=== PATIENT | male | born 1975 | race African-American/Black ===

== ENCOUNTER 2025-08-01 18:51 | Observation (INO) | payer OTHER, SELFPAY ==
[2025-08-01] VITALS (43 sets, daily range): BP systolic 150–196; BP diastolic 99–125; PULSE 65–77; TEMP 36.6; O2SAT 96–100; BMI 30.3; BMI 29.3
--- OUTSIDE RECORDS SUMMARY | 2025-08-01 18:59 | XMS_ITS | Clinical Summary ---
Author Organization [employer] tem Address [facility] [id number] [address] [place] [address] Care Team Providers Care Labor Specialist Name Role Phone Maicol Greco MD Primary Care Provider [phone] Allergies No known active allergies Medications MedicationSigDispense QuantityRefillsLast FilledStart DateEnd DateStatus metFORMIN (GLUCOPHAGE) 500 mg tablet Take 2 tablets (1,000 mg total) by mouth in the morning and 2 tablets (1,000 mg total) in the evening. Take with meals.Active lisinopril (PRINIVIL,ZESTRIL) 40 mg tablet Take 1 tablet (40 mg total) by mouth in the morning.Active glipiZIDE (GLUCOTROL) 10 mg tablet Take 1 tablet (10 mg total) by mouth in the morning.12/09/2023ctive traZODone (DESYREL) 100 mg tablet Take 1 tablet (100 mg total) by mouth nightly.Active lisinopriL (PRINIVIL,ZESTRIL) 40 mg tablet Take 1 tablet (40 mg total) by mouth in the morning. 30 tablet 1108/5Active magnesium oxide (MAGOX) 400 mg tablet Take 1 tablet (400 mg total) by mouth in the morning and 1 tablet (400 mg total) before bedtime. 180 tablet 408/25/5Active spironolactone (ALDACTONE) 50 mg tablet Indications:Hypertension, unspecified typeTake 1 tablet (50 mg total) by mouth in the morning and 1 tablet (50 mg total) in the evening. Takewith meals. 60 tablet 60//5Active potassium chloride (KLOR-CON M 20) 20 MEQ CR tablet Indications:HypokalemiaTake 3 tablets (60 mEq total) by mouth in the morning. 90 tablet 608/5Active carvediloL (COREG) 6.25 mg tablet Take 1 tablet (6.25 mg total) by mouth in the morning and 1 tablet (6.25 mg total) before bedtime. 60 tablet 605Active Active Problems ProblemNoted DateDiagnosed CmfuPbirqoowymea84/23/4367Akdujahhqnu72/23/2025 Dplmulmzgyous08/01/2019Diabetes vzjryvnl24/08/2017 Encounters DateTypeDepartmentCare IcfzJjnhlxpzcxy07/02/2025 10:50 AM EDT - 07/08/2025 11:59 PM EDTHospital Encounter [facility] [address] [place] [address] Dieudonne Torres MD Hypokalemia; Hypertension, unspecified type Discharge Disposition: Home07/08/2025Telephone [facility] [address] [place] [address] Alexandra Lynch, [facility] 07/08/20250695Pcnsye78/12/2025Telephone [facility] [address] [place] [phone] External, Scanning Provider 06/14/20252596Cxgnzn31/03/2025Telephone [facility] [address] [place] [address] Octavia Dumont, [facility] 06/03/2025Orders Only [facility] [address] [place] [address] Teri Sinclair LPN Hypokalemia (Primary Dx); Hypertension, unspecified type06/03/2025Telephone [facility] [address] [place] [address] Cindy Castillo, ESTIMATING MANAGER-CLINICAL STAFF ANESTHESIOLOGIST Increased BP05/31/2025 9:20 AM EDTOffice Visit [facility] [address] [place] [phone] Cindy Castillo, ESTIMATING MANAGER-CLINICAL STAFF ANESTHESIOLOGIST Hypokalemia (Primary Dx); Primary zopmuwpdzdxpcphvlj26/22/9922Ghjcsv43/13/2025Telephone [facility] [address] [place] [phone] External, Scanning Provider 05/18/2025Telephone [facility] [address] [place] [phone] Alexandra Lynch CMA Appointment (1 month follow up )from Last 3 Months Immunizations ImmunizationAdministration DatesNext DueCOVID-19, mRNA, LNP-S, PF, 100mcg/0.5mL Dose12/30/2020,12/02/2020 Family History Medical HistoryRelationNameCommentsDiabetesFatherHypertensionFatherLung cancer FatherHypertensionMotherRelationNameStatusCommentsFatherMother Social History Tobacco UseTypesPacks/DayYears UsedDateSmoking Tobacco: NeverSmokeless Tobacco: Never Tobacco Cessation:Counseling Given: Not Answered Alcohol UseStandard Drinks/WeekCommentsYes0 (1 standard drink = 0.6 oz pure alcohol)socialChildcareAnswerDate OxndykqnZeaxwhoucHofdkiw54/31/2019Employment AnswerDate HspygmzcKjnztbhgxmMhgotxg83/31/2019Hunger ScreeningAnswerDate RecordedWithin the past 12 months we worried whether our food would run out before we got money to buy more.Never True12/30/2023Within the past 12 months the food we bought just didn't last and we didn't have money to get more.Never True4Purpose - LifeAnswerDate RecordedPurpose and direction in life Wzlukwr2811/17/2020ex and Gender InformationValueDate RecordedSex Assigned at BirthNot on fileLegal JzlUydh3605/12/2015 11:22 AM EDTGender IdentityNot on file Sexual OrientationNot on file Last Filed Vital Signs Vital SignReadingTime TakenCommentsBlood Gmrvyjxg118/9608 9:31 AM EDT Qgibm814505/31/2025 9:26 AM CARLqtejrewifl26.5 ??C (97.7 ??F)01/27/2024 9:48 AM EDTRespiratory Oklj267504/28/2025 10:31 AM EDTOxygen Sfzlufmyxa49%05/31/2025 9:26 AM EDTInhaled Oxygen Concentration--Tfztko380.7 kg (222 lb)07/08/2025 11:01 AM YAHPdqxoq171.4 cm (6' 1 )07/08/2025 11:01 AM EDTBody Mass Index29.291 11:01 AM EDT Plan of Treatment Health MaintenanceDue DateLast DoneCommentsDiabetic Ophthalmology Exam1973 Statin Use: Hxblsszr1973Depression Tueuotgyd10/24/1985Adult BMI Follow Up Plan1991Diabetic Foot Exam1991DTaP,Tdap and Td Vaccines (1 - Tdap) 1992Zoster (Shingles) Vaccine (1 of 2)2023OVID-19 Vaccine (3 - 2024- season)503/, 12/02/2020Influenza Gbrcrgn4406/07/2025 10/03/2019Tobacco Dkevaofyp75/dult BMI Nszfjfbmd74/02/2026 07/08/20250526Cfawsttpudk33, 01/27/2024 Medical Devices Not on file Procedures Procedure NamePriorityDate/TimeAssociated DiagnosisCommentsMR ABDOMEN W WO CONT Basihnl1307/08/2025 11:54 AM EDT Hypokalemia Hypertension, unspecified type BASIC METABOLIC EFCHRPwhyoqi98/08/2025 2:34 PM EDT Hypokalemia Primary hyperaldosteronism PROTEIN CREAT EHUQQNbtuwpm68/22/2025 12:47 PM EDT Hypokalemia Hypertension, unspecified type VEDZKBZZXSEgtruah46/22/2025 12:47 PM EDT Hypokalemia Hypertension, unspecified type FIRVXTKNOKrphedw60/22/2025 12:47 PM EDT Hypokalemia Hypertension, unspecified type BASIC METABOLIC NBULGZdauwns04/22/2025 12:47 PM EDT Hypokalemia Hypertension, unspecified type PROVATION PPRLLGWUKRIPxtdcsh01/22/2024 9:38 AM EDT from Last 3 Months or Most Recently Relevant to Health Maintenance Results * MR abdomen with and without contrast (07/08/2025 11:54 AM EDT)Anatomical RegionLateralityModalityAbdomen, Body, Body CoveraN/AMagnetic Resonance Specimen (Source)Anatomical Location / LateralityCollection Method / Volume Collection TimeReceived Time07/09/2025 12:34 PM EDT Narrative 07/09/2025 12:41 PM EDT History: Hypertension. Hypokalemia. EXAM: MRI abdomen without and with contrast Comparison: None FINDINGS: Nonstenotic liver morphology. Moderate hepatic steatosis, fat fraction 14%. Moderate unlikely. No enhancing lesions in liver, spleen, pancreas, adrenal glands or kidneys. Small benign bilateral subcentimeter renal cysts. No follow- up necessary. No enlarged lymph nodes. No free fluid. No abdominal aortic aneurysm. Bone marrow signal within normal limits. Small gallstones in a nondilated gallbladder. No intrahepatic biliary dilatation. Common duct, pancreatic duct within normal limits. IMPRESSION: Splenomegaly. Moderate hepatic steatosis. Finalized by Ben Calderon MD on 07/09/2025 12:41 PM Procedure Note Ben Calderon MD - 07/09/2025 History: Hypertension. Hypokalemia. EXAM: MRI abdomen without and with contrast Comparison: None FINDINGS: Nonstenotic liver morphology. Moderate hepatic steatosis, fat vgrrtuzw23%. Moderate unlikely. No enhancing lesions in liver, spleen, pancreas,adrenal glands or kidneys. Small benign bilateral subcentimeter renalcysts. No follow-up necessary. No enlarged lymph nodes. No free fluid. No abdominal aortic aneurysm. Bonemarrow signal within normal limits. Small gallstones in a nondilated gallbladder. No intrahepatic biliarydilatation. Common duct, pancreatic duct within normal limits. IMPRESSION: Splenomegaly. Moderate hepatic steatosis. Finalized by Ben Calderon MD on 07/09/2025 12:41 PM Authorizing ProviderResult TypeResult StatusRamy Taurus Torres MDIMGilles MRI ORDERABLES Final Result * (ABNORMAL) Basic Metabolic Panel (06/14/2025 2:34 PM EDT) Only the most recent of2 resultswithin the time period is included. ComponentValueRef RangeTest MethodAnalysis TimePerformed AtPathologist Signature KQQIEF084379 - 146 mmol/L06/14/2025 6:48 PM [facility] LABORATORYPOTASSIUM3.83.5 - 5.0 mmol/L06/14/2025 6:48 PM [facility] LIIJWYJLADAXCKYVFX36494 - 109 mmol/L06/14/2025 6:48 PM [facility] LABORATORYCARBON BBHYIAQ4896 - 32 mmol/L06/14/2025 6:48 PM [facility] LABORATORYANION VXD562 - 15 mmol/L06/14/2025 6:48 PM [facility] LABORATORYBLOOD UREA EVXZBELA391 - 23 mg/dL06/14/2025 6:48 PM [facility] LABORATORYCREATININE1.080.60 - 1.30 mg/dL06/14/2025 6:48 PM [facility] LABORATORYComment:METHOD TRACEABLE TO IDMS CAABJLTOXCQTDVY868(H)65 - 99 mg/dL06/14/2025 6:48 PM [facility] LABORATORYCALCIUM8.78.5 - 10.5 mg/dL06/14/2025 6:48 PM [facility] LABORATORYEGFR Non-Race Aderehzbw88>=60 ml/min/1.73sq.m006/14/2025 6:48 PM [facility] LABORATORYComment: Reported eGFR is based on the CKD-EPI 2021 equation that does not use a race coefficient. Specimen (Source)Anatomical Location / LateralityCollection Method / Volume Collection TimeReceived TimeBloodVenous blood / UnknownVenipuncture / Unknown 06/14/2025 2:34 PM EDT06/14/2025 2:35 PM EDT Narrative Authorizing ProviderResult TypeResult StatusCindy Gordon Castillo ESTIMATING MANAGER-CNPLAB BLOOD ORDERABLESFinal ResultPerforming OrganizationAddressCity/State/ZIP CodePhone Number [facility] [address] [place] [address], * (ABNORMAL) Protein creat ratio (05/28/2025 12:47 PM EDT)ComponentValueRef RangeTest MethodAnalysis TimePerformed AtPathologist SignatureURINE PROTEIN, RANDOM (MG/L)280(H)<120 mg/L05/28/2025 7:19 PM [facility] LABORATORYURINE CREATININE,BKI556.66mg/dL05/28/2025 7:19 PM [facility] LABORATORYU/PRO/NEEDLE LOOM WEAVER RATIO CALC0.14<=0. 7:19 PM [facility] LABORATORYSpecimen (Source)Anatomical Location / Laterality Collection Method / VolumeCollection TimeReceived TimeUrine (Other)Collection / Sfdrzuy6805/28/2025 12:47 PM EDT05/28/2025 12:47 PM EDT Narrative [facility] - 05/28/2025 7:19 PM EDT Nephrotic Syndrome is associated with ratios >3.5 Authorizing ProviderResult TypeResult StatusDieudonne Torres MDURINE ORDERABLESFinal ResultPerforming OrganizationAddressCity/State/ZIP CodePhone Number [facility] [address] [place] [address], * (ABNORMAL) Urinalysis (05/28/2025 12:47 PM EDT)ComponentValueRef RangeTest MethodAnalysis TimePerformed AtPathologist SignatureCOLORYellowYellow 05/28/2025 6:36 PM [facility] LABORATORYTURBIDITYClearClear 05/28/2025 6:36 PM [facility] LABORATORYSPECIFIC GRAVITY1.018 1.003 - 1.2465005/28/2025 6:36 PM [facility] LABORATORYNITRITE BgebutqtNbtzkcrv50/22/2025 6:36 PM [facility] PH,URINE6.05.0 - 8.5005/28/2025 6:36 PM [facility] LEUKOCYTE XDPTGARRNfrbuypnWghsgxxf33/22/2025 6:36 PM [facility] LABORATORYPROTEINTrace(A)Eslcqsmd22/22/2025 6:36 PM [facility] LABORATORYKETONES (URINE)WtxkgxniVhlusiuj38/22/2025 6:36 PM [facility] LABORATORYUROBILINOGEN<1.1 eu/dL<1.1 eu/dL05/28/2025 6:36 PM [facility] LABORATORYBILIRUBIN (URINE)NegativeNegative 05/28/2025 6:36 PM [facility] LABORATORYBLOOD/HGBNegative Rkelyeqy28/22/2025 6:36 PM [facility] LABORATORYMUCOUSPresent (A)None05/28/2025 6:36 PM [facility] LABORATORYR.B.CELLS00 - 5005/28/2025 6:36 PM [facility] LABORATORYSQUAMOUS EPITHELIUM1 0 - 5005/28/2025 6:36 PM [facility] LABORATORYW.B.CELLS20 - 5 05/28/2025 6:36 PM [facility] LABORATORYGLUCOSE (URINE) XcmpjuwzJgcouikm49/22/2025 6:36 PM [facility] Specimen (Source)Anatomical Location / LateralityCollection Method / Volume Collection TimeReceived TimeUrine (Other)Collection / Diumygj3305/28/2025 12:47 PM EDT05/28/2025 12:47 PM EDT [facility] - 05/28/2025 6:36 PM EDT Urine received without preservative - delays in transport may affect results. Interpret with caution and clinical correlation is recommended. Authorizing ProviderResult TypeResult StatusRamy Taurus DENSON ORDERABLESFinal ResultPerforming OrganizationAddressCity/State/ZIP CodePhone Number [facility] [address] [place] [address], * (ABNORMAL) Magnesium (05/28/2025 12:47 PM EDT)ComponentValueRef RangeTest MethodAnalysis TimePerformed AtPathologist SignatureMAGNESIUM1.7(L)1.8 - 2.6 mg/dL05/28/2025 6:38 PM EDTTOLEDO [facility] LABORATORYSpecimen (Source)Anatomical Location / LateralityCollection Method / VolumeCollection TimeReceived TimeBloodVenous blood / UnknownVenipuncture / Jlvzrhw8105/28/2025 12:47 PM EDT05/28/2025 12:47 PM EDT Narrative Authorizing ProviderResult TypeResult StatusRamy Taurus AGUIRRE BLOOD ORDERABLES Final ResultPerforming OrganizationAddressty/State/ZIP CodePhone Number [facility] [address] [place] [address], * Colonoscopy Report (01/27/2024 9:38 AM EDT)Specimen (Source)Anatomical Location / LateralityCollection Method / VolumeCollection TimeReceived Time Narrative SYSTEMGENERATED, DOCUMENTATION - 01/27/2024 9:38 AM EDT This order has been auto-finalized for image and report archival in PACs. *For full report details, please reach out to your physician. ??This image is visible to you in MyChart.* Authorizing ProviderResult TypeResult StatusMicjanuary Lion DOIMG OR IMG ORDERABLESFinal Result from Last 3 Months or Most Recently Relevant to Health Maintenance Insurance Care Teams Team MemberRelationshipSpecialtyStart DateEnd Date Maicol Greco MD PCP - GeneralFamily Medicine01/13/25
--- OUTSIDE RECORDS SUMMARY | 2025-08-01 18:59 | XMS_ITS | Clinical Summary ---
Author Organization [facility] Healthcare Address [address] [place] [address] Care Team Providers Care Senior Product Consultant Name Role Phone Maicol Greco MD Primary Care Provider [phone] Allergies No known active allergies Medications MedicationSigDispense QuantityRefillsLast FilledStart DateEnd DateStatus cholecalciferol (Vitamin D-3) 50 MCG (1999 UT) tablet Take 2,000 Units by mouth in the morning.Active atorvastatin (Lipitor) 40 MG tablet Indications:Microalbuminuria due to type 2 diabetes mellitus (HCC)Take 1 tablet (40 mg) by mouth at bedtime 30 tablet 4Active traZODone (Desyrel) 100 MG tablet Indications:Primary insomniaTake 1 tablet (100 mg) by mouth at bedtime 30 tablet 1103/726002/6Active amLODIPine (Norvasc) 10 MG tablet Indications:Hypertension, unspecified typeTake 1 tablet (10 mg) by mouth Daily 90 tablet 5Active glipiZIDE (Glucotrol) 10 MG tablet Indications:Microalbuminuria due to type 2 diabetes mellitus (HCC)Take 1 tablet (10 mg) by mouth Daily 90 tablet 5Active potassium chloride CR (Klor-Con M20) 20 MEQ ER tablet Indications:HypokalemiaTake 2 tablets (40 mEq) by mouth in the morning and 2 tablets (40 mEq) in the evening and 2 tablets(40 mEq) before bedtime. Do not crush or chew.. 270 tablet 5Active valACYclovir (Valtrex) 1 g tablet Indications:Genital herpes in menTake 1 tablet (1,000 mg) by mouth Daily 30 tablet 5Active metFORMIN XR (Glucophage-XR) 500 MG 24 hr tablet Indications:Type 2 diabetes mellitus with hyperglycemia, without long-term current use of insulin (HCC)Take 1 tablet (500 mg) by mouth in the morning and 1 tablet (500 mg) before bedtime. 60 tablet 1104//703896/6Active lisinopril 20 MG tablet Indications:Essential hypertension, benignTake 1 tablet by mouth once daily 30 tablet 5Active Active Problems ProblemNoted DateDiagnosed DateEncounter for long-term current use of medication 07/14/2024nnual physical exam07/14/2024 Assessment & Plan (01/12/2025 11:33 AM EDT): Due for labs. Discussed proper diet and regular aerobic exercise. Need aerobic exercise 5-6 days aweek for 30 minutes at a time. Smaller portions and limit total calories. Colonoscopy every 10 years. Tetanus every 10 years. Advised not to smoke. Essential hypertension, jlnwue0312/09/2023 Assessment & Plan (01/12/2025 11:33 AM EDT): BP elevated but out of lisinopril and resume. Monitor PRN. Assessment & Plan (07/14/2024 11:02 AM EDT): BP controlled and monitor PRN. Discussed DASH diet. Assessment & Plan (01/08/2024 11:30 AM EDT): BP improved and monitor PRN. Discussed DASH diet. Assessment & Plan (12/09/2023 11:21 AM EST): BP elevated and resume lisinopril. Monitor PRN. Discussed DASH diet. Genital herpes in men12/09/20236819Syjigplfvea73/04/2024Obstructive sleep apnea 12/09/2023 Assessment & Plan (07/14/2024 11:03 AM EDT): Sleeping well with CPAP and use nightly. Assessment & Plan (01/08/2024 11:30 AM EDT): Sleeping well with CPAP and use nightly. Assessment & Plan (12/09/2023 11:21 AM EST): Sleeping well with CPAP and use nightly. Microalbuminuria due to type 2 diabetes szooxirp00/04/2024 Assessment & Plan (01/12/2025 11:33 AM EDT): Reports BS stable and due for A1C. Stick to ADA diet and limit carbs. Assessment & Plan (07/14/2024 11:03 AM EDT): Reports BS improved and due for A1C. Stick to ADA diet and limit carbs. Assessment & Plan (01/08/2024 11:30 AM EDT): BS improved with increased glipizide and monitor. Stick to ADA diet and limit carbs. Assessment & Plan (12/09/2023 11:21 AM EST): BS elevated and A1C 8.0. Stick to ADA diet and limit carbs. Increase glipizide to BID. Vitamin D dwgnicvees32/04/2024rimary ipmzqjap46/04/2024 Assessment & Plan (07/14/2024 11:03 AM EDT): Sleeping well with trazodone and use PRN. Assessment & Plan (01/08/2024 11:30 AM EDT): Sleeping well with trazodone and use PRN. Assessment & Plan (12/09/2023 11:22 AM EST): Sleeping well with trazodone and use PRN. Resolved Problems ProblemNoted DateDiagnosed DateResolved DateChest pain, maxdkwlu92/23/2024 07/14/2024 Assessment & Plan (01/28/2024 10:20 AM EDT): Reassured that lump was xiphoid process and normal. Continue to monitor. If seems to change or increase in pain can check x-ray to assess position. Family History Medical HistoryRelationNameCommentsCancerFatherDiabetesFatherHypertensionFather Lung cancerFatherHypertensionMotherRelationNameStatusCommentsFatherDeceased Mother Social History Tobacco UseTypesPacks/DayYears UsedDateSmoking Tobacco: NeverSmokeless Tobacco: Never Tobacco Cessation:Counseling Given: Not Answered Social Connection and Isolation PanelAnswerDate RecordedIn a typical week, how many times do you talk on the phone with family, friends, or neighbors?Three times a week12/02/2023How often do you get together with friends or relatives? Three times a week12/02/2023How often do you attend judaism or pentecostal services?More than 4 times per year12/02/2023o you belong to any clubs or organizations such as judaism groups, unions, fraternal or athletic groups, or school groups?Yes12/02/2023How often do you attend meetings of the clubs or organizations you belong to?More than 4 times per year12/02/2023re you , , , , never , or living with a partner? 12/02/2023UDIT-CAnswerDate RecordedQ1: How often do you have a drink containing alcohol?2-3 times a week12/02/2023Q2: How many drinks containing alcohol do you have on a typical day when you are drinking?1 or Q3: How often do you have six or more drinks on one occasion?Less than dlwuvue9512/02/2023Overall Financial Resource Strain (CARDIA)AnswerDate RecordedHow hard is it for you to pay for the very basics like food, housing, medical care, and heating?Not very hard12/02/2023[facility] [place] [facility] - Occupational Stress QuestionnaireAnswerDate RecordedDo you feel stress - tense, restless, nervous, or anxious, or unable to sleep at night because yourmind is troubled all the time - these days?Only a frgxbb5412/02/2023Exercise Vital SignAnswerDate Recorded On average, how many days per week do you engage in moderate to strenuous exercise (like a brisk walk)?2 days12/02/2023On average, how many minutes do you engage in exercise at this level?60 min12/02/2023Hunger Vital SignAnswerDate RecordedWithin the past 12 months, you worried that your food would run out before you got the money to buymore.Never true12/02/2023Within the past 12 months, the food you bought just didn't last and you didn't have money to get more.Never true12/02/2023RAPARE - TransportationAnswerDate RecordedIn the past 12 months, has lack of transportation kept you from medical appointments or from getting medications?No12/02/2023In the past 12 months, has lack of transportation kept you from meetings, work, or from getting things needed for daily living?No12/02/2023Housing Stability Vital SignAnswerDate RecordedIn the last 12 months, was there a time when you were not able to pay the mortgage or rent on time?No12/02/2023In the last 12 months, how many places have you lived?1 12/02/2023In the last 12 months, was there a time when you did not have a steady place to sleep or slept in [facility] (including now)?Yes12/02/2023Sex and Gender InformationValueDate RecordedSex Assigned at BirthNot on fileLegal SexMale 06/07/2023 2:37 PM EDTGender IdentityNot on fileSexual OrientationNot on file Last Filed Vital Signs Vital SignReadingTime TakenCommentsBlood Ufukvjlx990/8804 10:59 AM EDT Juwlf945401/12/2025 10:59 AM TJKDqkquvkkgul93.4 ??C (97.5 ??F)01/12/2025 10:59 AM EDTRespiratory Hpjq043401/12/2025 10:59 AM EDTOxygen Jwpnsfdnhc03%01/12/2025 10:59 AM EDTInhaled Oxygen Concentration--Rvsksa45.9 kg (218 lb)01/12/2025 10:59 AM RBGToainl820.4 cm (6' 1 )01/12/2025 10:59 AM EDTBody Mass Index28.76001/12/2025 10:59 AM EDT Plan of Treatment Not on file Insurance Care Teams Team MemberRelationshipSpecialtyStart DateEnd Date Maicol Greco MD PCP - GeneralFamily Medicine11/05/23
--- NOTE | 2025-08-01 19:37 | ED.CHESTPAI1 ---
HPI - Chest Pain General Chief Complaint: Chest Pain Stated Complaint: CHest Pain Time Seen by Provider: 08/01/25 19:31 Source: patient Mode of arrival: walk-in History of Present Illness HPI narrative: past history of NIDDM, HTN, hyperlipidemia. Recurrent episodes of chest pain that started last PM at work. can last 10-15 minutes. No radiation. Pain a couple more times today. Pain is now again easing up. No associated nausea Related Data Home Medications ?Medication ?Instructions ?Recorded ?Confirmed amlodipine 10 mg tablet 10 mg PO DAILY 08/01/25 08/01/25 atorvastatin 40 mg tablet 40 mg PO QPM 08/01/25 08/01/25 carvedilol 6.25 mg tablet 6.25 mg PO BID 08/01/25 08/01/25 glipizide 10 mg tablet 10 mg PO DAILY 08/01/25 08/01/25 lisinopril 40 mg tablet 40 mg PO QAM 08/01/25 08/01/25 magnesium oxide 400 mg (241.3 mg 400 mg PO DAILY 08/01/25 08/01/25 magnesium) tablet metformin 500 mg tablet,extended 500 mg PO BID 08/01/25 08/01/25 release 24 hr spironolactone 50 mg tablet 50 mg PO QAM 08/01/25 08/01/25 trazodone 100 mg tablet 100 mg PO QPM 08/01/25 08/01/25 Allergies Allergy/AdvReac Type Severity Reaction Status Date / Time No Known Drug Allergies Allergy Verified 08/01/25 19:01 Review of Systems ROS Status of ROS 10 or more systems reviewed and unremarkable except as noted in history and below PFSH PFSH Social History Little interest or pleasure in doing things: not at all Feeling down, depressed, or hopeless: not at all Exam Constitutional Vital Signs, click to edit/add: Last Vital Signs Temp 97.8 F 08/01/25 18:55 Pulse 71 08/01/25 21:20 Resp 12 08/01/25 21:20 BP 170/105 H 08/01/25 21:51 Pulse Ox 98 08/01/25 21:20 O2 Del Method Room Air 08/01/25 19:14 Common normals: no apparent distress, average body habitus, oriented x3, no limitations, healthy appearing, alert and well nourished [facility] Common normals: normocephalic and head/scalp atraumatic Eye Common normals: PERRL and EOMs intact bilaterally Respiratory Common normals: normal respiratory effort, no retractions, no use of accessory muscles and clear to auscultation bilaterally Cardio Common normals: regular rate, regular rhythm, S1 normal heart sound and S2 normal heart sound GI Common normals: Normal to inspection, nondistended, normoactive bowel sounds present, soft to palpation and non-tender Extremity Common normals: normal to inspection and full ROM Neuro Common normals: oriented x3, CN's II-XII intact bilaterally, moves all extremities, no focal motor deficits and no sensory deficits noted Psych Appearance: grossly normal Course Vital Signs Vital signs: Vital Signs Temperature 97.8 F 08/01/25 18:55 Pulse Rate 71 08/01/25 18:55 Respiratory Rate 20 08/01/25 18:55 Blood Pressure 180/110 H 08/01/25 18:55 Pulse Oximetry 99 08/01/25 18:55 Temperature 97.8 F 08/01/25 18:55 Pulse Rate 71 08/01/25 21:20 Respiratory Rate 12 08/01/25 21:20 Blood Pressure 170/105 H 08/01/25 21:51 Pulse Oximetry 98 08/01/25 21:20 Oxygen Delivery Method Room Air 08/01/25 19:14 MDM - Chest Pain MDM Narrative Medical decision making narrative: patient has history of HTN, hyperlipidemia and he is diabetic. Presents with recurrent episodes of chest pain since last PM and hypertension urgency. Chest pain is resolving again spontaneously. workup in the ER neg including normal d-dimer, troponin, cxray and EKG. Discussed with the hospitalist who would like a 2nd troponin before the patient is taken upstairs for admission Lab Data Labs: Lab Results 08/01/25 Range/Units 19:10 WBC 5.1 (4.0-11.0) 10^3/uL RBC 4.27 L (4.70-6.10) 10^6/uL Hgb 13.2 L (14.0-18.0) g/dL Hct 36.1 L (42.0-54.0) % MCV 84.5 (80.0-94.0) fL MCH 30.9 (25.9-34.0) pg MCHC 36.6 H (29.9-35.2) g/dL RDW 13.9 (11.0-15.0) % Plt Count 124 L (150-450) 10^3/uL MPV 11.4 (9.5-13.5) fL Neut % (Auto) 71.7 (43.0-75.0) % Lymph % (Auto) 19.7 L (20.5-60.0) % Towns % (Auto) 3.7 (1.7-12.0) % Eos % (Auto) 3.9 (0.9-7.0) % Baso % (Auto) 0.4 (0.2-2.0) % Neut # (Auto) 3.7 (1.4-6.5) 10^3/uL Lymph # (Auto) 1.0 L (1.2-3.8) 10^3/uL [place] # (Auto) 0.2 L (0.3-0.8) 10^3/uL Eos # (Auto) 0.2 (0.0-0.7) 10^3/uL Baso # (Auto) 0.0 (0.0-0.1) 10^3/uL Abs Immat Gran (auto) 0.03 (0.00-0.03) 10^3/uL Imm/Tot Granulo (auto) 0.6 H (0.0-0.5) % D-Dimer 0.28 (<=0.59) mg/L FEU Sodium 136 (136-145) mmol/L Potassium 3.7 (3.5-5.1) mmol/L Chloride 100 (98-107) mmol/L Carbon Dioxide 31.6 (21.0-32.0) mmol/L Anion Gap 8.1 BUN 11.0 (7.0-18.0) mg/dL Creatinine 1.07 (0.70-1.30) mg/dL Est GFR ( Amer) >60 (>=60 mL/min/1.73m^2) Est GFR (Non-Af Amer) >60 (>=60 mL/min/1.73m^2) BUN/Creatinine Ratio 10.3 Glucose 205 H (74-106) mg/dL Calcium 8.7 (8.5-10.1) mg/dL Troponin I High Sens 13.2 (4.0-76.1) pg/mL NT-Pro-B Natriuret Pep 104.0 (<=900.0) pg/mL Discharge Plan Discharge Chief Complaint: Chest Pain Clinical Impression: Chest pain Patient Disposition: Admitted as Observation
--- NOTE | 2025-08-01 19:39 | XR_ITS ---
The [place] [id number] Patient Name: ANASTASIA BAKER MRN: [id number] date: 1975 Sex: M Assigned Patient Location: ER Current Patient Location: [place] Accession/Order Number: [id number] Exam Date: 08/01/2025 20:02 Report Date: 08/02/2025 08:01 At the request of: DARRIUS DIAZ MD Procedure: XR chest 1V PORTABLE AP ERECT CHEST 1856 hours CLINICAL HISTORY: chest pain COMPARISON: None The heart is top normal in size. There is no vascular congestion. The lungs, as visualized, are clear. There is no effusion or pneumothorax. The osseous structures are intact. XR/XR chest 1V IMPRESSION: NO ACUTE FINDINGS Impression dictated by: Taina Gale M.D. 08/02/2025 8:01 AM Dictation Location: [place] [address] Electronically authenticated by: [id number] Y Date: 08/02/2025 08:01
--- NOTE | 2025-08-01 19:43 | ECG_ITS ---
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 Measurements Intervals Lane Rate: 66 P: 38 MN: 174 QRS: -5 QRSD: 90 T: 16 QT: 390 QTc: 404 Interpretive Statements 1100 Sinus rhythm 4068 Nonspecific Twave abnormality 9130 borderline ECG No previous ECG available for comparison Electronically Signed On 08-01-2025 22:22:55 EDT by AUGUSTA GAMING M.D.
[2025-08-01 19:48] LABS: Hematocrit 36.1 % (42.0-54.0); Hemoglobin 13.2 g/dL (14.0-18.0); Immature Granulocytes Abs Auto 0.03 10^3/uL (0.00-0.03); Immature Granulocytes Pct Auto 0.6 % (0.0-0.5); Lymphocytes Absolute Auto 1.0 10^3/uL (1.2-3.8); Mean Corpuscular HGB Conc 36.6 g/dL (29.9-35.2); Mean Corpuscular Hemoglobin 30.9 pg (25.9-34.0); Mean Corpuscular Volume 84.5 fL (80.0-94.0); Platelet Count 124 10^3/uL (150-450); Red Blood Count 4.27 10^6/uL (4.70-6.10); White Blood Count 5.1 10^3/uL (4.0-11.0)
[2025-08-01 20:08] LABS: Anion Gap 8.1; Blood Urea Nitrogen 11.0 mg/dL (7.0-18.0); Calcium 8.7 mg/dL (8.5-10.1); Carbon Dioxide 31.6 mmol/L (21.0-32.0); Chloride 100 mmol/L (98-107); Estimated GFR (African America >60 (>=60 mL/min/1.73m^2); Estimated GFR (Non-African Ame >60 (>=60 mL/min/1.73m^2); Glucose 205 mg/dL (74-106); NT Pro B Type Natriuretic Pept 104.0 pg/mL (<=900.0); Potassium 3.7 mmol/L (3.5-5.1); Sodium 136 mmol/L (136-145)
[2025-08-01] MEDS: CLONIDINE HCL 0.1 MG TABLET PO ×2 (21:04→22:42)
[2025-08-02] VITALS (17 sets, daily range): BP systolic 151–175; BP diastolic 89–97; PULSE 59–89; TEMP 36.6–37; O2SAT 93–98
[2025-08-02] MEDS: METOPROLOL TARTRATE 25 MG TABLET PO (00:04)
[2025-08-02] MEDS: ENOXAPARIN SODIUM 40 MG/0.4 ML SYRINGE SUBQ ×2 (00:04→08:37)
[2025-08-02] MEDS: ASPIRIN 325 MG TABLET PO ×2 (00:04→08:33)
[2025-08-02 05:57] LABS: Hematocrit 34.8 % (42.0-54.0); Hemoglobin 12.8 g/dL (14.0-18.0); Immature Granulocytes Abs Auto 0.01 10^3/uL (0.00-0.03); Immature Granulocytes Pct Auto 0.2 % (0.0-0.5); Lymphocytes Absolute Auto 1.6 10^3/uL (1.2-3.8); Mean Corpuscular HGB Conc 36.8 g/dL (29.9-35.2); Mean Corpuscular Hemoglobin 30.8 pg (25.9-34.0); Mean Corpuscular Volume 83.7 fL (80.0-94.0); Platelet Count 116 10^3/uL (150-450); Red Blood Count 4.16 10^6/uL (4.70-6.10); White Blood Count 5.7 10^3/uL (4.0-11.0)
[2025-08-02 06:20] LABS: Alanine Aminotransferase 41 U/L (16-63); Albumin Globulin Ratio 1.2; Albumin Level 3.6 g/dL (3.4-5.0); Alkaline Phosphatase 61 U/L (46-116); Anion Gap 9.9; Aspartate Amino Transferase 19 U/L (15-37); Blood Urea Nitrogen 12.0 mg/dL (7.0-18.0); Calcium 8.1 mg/dL (8.5-10.1); Carbon Dioxide 27.3 mmol/L (21.0-32.0); Chloride 100 mmol/L (98-107); Cholesterol 141 mg/dL (<=200); Estimated GFR (African America >60 (>=60 mL/min/1.73m^2); Estimated GFR (Non-African Ame >60 (>=60 mL/min/1.73m^2); Globulin 3.0 g/dL; Glucose 152 mg/dL (74-106); HDL Cholesterol 32 mg/dL (40-60); Lipase 66.0 U/L (16.0-77.0); Magnesium 1.8 mg/dL (1.8-2.4); Potassium 3.2 mmol/L (3.5-5.1); Sodium 134 mmol/L (136-145); Total Protein 6.6 g/dL (6.4-8.2); Triglycerides 197 mg/dL (<=150); VLDL CHOLESTEROL 39.4 mg/dL
--- NOTE | 2025-08-02 07:00 | ECG_ITS ---
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 Measurements Intervals [place] Rate: 64 P: 22 ND: 192 QRS: 69 QRSD: 98 T: -5 QT: 411 QTc: 425 Interpretive Statements SINUS RHYTHM INCOMPLETE RIGHT BUNDLE BRANCH BLOCK [90+ ms QRS DURATION, TERMINAL R IN V1/V2, 40+ ms S IN I/aVL/V4/V5/V6] MODERATE T-WAVE ABNORMALITY, CONSIDER LATERAL ISCHEMIA [-0.1+ mV T WAVE IN I/aVL/V5/V6] Compared to ECG 08/01/2025 19:01:24 Incomplete right bundle-branch block now present T-wave abnormality now present Possible ischemia now present Electronically Signed On 08-02-2025 18:03:11 EDT by AUGUSTA GAMING M.D.
--- NOTE | 2025-08-02 07:30 | CM.NOTE ---
Rounds made with Dr. Calero. Discussed with pt diagnosis and plan of care. Pt to have cardiology consult and stress test today.
--- NOTE | 2025-08-02 07:38 | NM_ITS ---
Patient Name: ANASTASIA BAKER MR#: [id number] : 1975 Exam Date: 08/02/2025 Ordering Doctor: NANCY GRANADOS RADIOLOGY REPORT PROCEDURE: NM NEREIDA PERF SPECT REST STR COMPARISON: None. INDICATIONS: chest pain TECHNIQUE: Exam Description: Stress/Rest one day protocol gated SPECT Rest Imagin.2 mCi Tc-99m Cardiolite IV on 08/02/2025 Stress Imaging 30.1 mCi Tc-99m Cardiolite IV on 08/02/2025 Exercise Protocol: Héctor Heart Rate (bpm): Rest: 63 Max: 148 PMHR: 87 Blood Pressure: Rest: 178/90 Max: 210/104 Exercise Time: Minutes: 10 Seconds: 12 Stage Reached: Stage: 4 Mets 13.4 Symptoms: Rest and peak stress ECG findings were pending and the exercise portion of the study was pending per attending physician [facility] . For more details please see separate cardiac stress test report. FINDINGS: Abnormal perfusion QUALITY OF STUDY: Good PERFUSION DEFECT: Apical perfusion defect LOCATION: [place] SIZE: Small SEVERITY: Moderate TYPE: Reversible WALL MOTION: LV SIZE: 144 mL. TID / TCD: 0.8 LVEF: Calculated EF 51%. SUMMARY: Myocardial perfusion imaging study CONCLUSION: -Positive myocardial perfusion stress study for ischemia with the apical reversible defect. -Abnormal myocardial perfusion study. -Normal global left ventricular function -No transient ischemic dilatation. -ECG Stress will be reported separately Dictated by: Georgina Conway MD on 08/02/2025 at 15:50 Approved by: Georgina Conway MD on 08/02/2025 at 15:54
--- NOTE | 2025-08-02 08:09 | PM.HP ---
HPI H&P: HPI History of Present Illness Chief complaint: CHest Pain Narrative: Mr Delgado is a 49-year-old gentleman with a history of hypertension and diabetes. Patient came in to the emergency room complaining of intermittent chest pain over the last 48 hours. Pressure sensation lasting for about 5 to 10 minutes. 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 The pain goes away after 5 minutes. No radiation. No diaphoresis. No shortness of breath. No fever or chills. No prior history of heart disease. No abdominal pain, nausea or vomiting Opioid HPI Opioid Management Most Recent Pain and Opioid Data: Last Pain Assessment Today, 07:31 Last ORT Total Score 4 08/01/25, 23:55 Last ORT Risk Category Moderate Risk 08/01/25, 23:55 Review of Systems ROS Status of ROS 10 or more systems reviewed and unremarkable except as noted in history and below [facility] Medical History (Updated 08/02/25 @ 08:11 by Homero Calero MD) High cholesterol ?E78.00 - Pure hypercholesterolemia, unspecified (ICD-10) Family History (Updated 08/01/25 @ 23:56 by Lee Ann Walters) Other Family history of cancer Family history of diabetes mellitus Family history of hypertension Family history of myocardial infarction Family history of stroke Social History (Updated 08/01/25 @ 23:56 by Lee Ann Walters) Within the past year, how often did you have a drink containing alcohol: monthly or less Within the past year, how many standard drinks containing alcohol did you have on a typical day: 1 or 2 Total score: 0 Score interpretation: A score less than 4 is consistent with normal alcohol consumption. Smoking status: Never smoker Non-prescribed substance use: cannabis (any form) Non-prescribed substance use details: edibles In a typical week, how many times do you talk on the telephone with family, friends, or neighbors: 3 or more times per week How often do you get together with friends or relatives: 3 or more times per week Little interest or pleasure in doing things: not at all Feeling down, depressed, or hopeless: not at all Feel stressed/tense/nervous/anxious/difficulty sleeping: not at all Do you think of yourself as: straight/heterosexual Gender Identity: male Meds Home Medications and Allergies Home Medications ?Medication ?Instructions ?Recorded ?Confirmed ?Type amlodipine 10 mg tablet 10 mg PO DAILY 10/26/25 10/26/25 History atorvastatin 40 mg tablet 40 mg PO QPM 08/01/25 08/01/25 History carvedilol 6.25 mg tablet 6.25 mg PO BID 08/01/25 08/01/25 History glipizide 10 mg tablet 10 mg PO DAILY 08/01/25 08/01/25 History lisinopril 40 mg tablet 40 mg PO QAM 08/01/25 08/01/25 History magnesium oxide 400 mg (241.3 mg 400 mg PO DAILY 08/01/25 08/01/25 History magnesium) tablet metformin 500 mg tablet,extended 500 mg PO BID 08/01/25 08/01/25 History release 24 hr spironolactone 50 mg tablet 50 mg PO QAM 08/01/25 08/01/25 History trazodone 100 mg tablet 100 mg PO QPM 08/01/25 08/01/25 History Allergies Allergy/AdvReac Type Severity Reaction Status Date / Time No Known Drug Allergies Allergy Verified 08/01/25 19:01 Exam Narrative Exam Narrative: [pt is awake and alert. oriented to place, time and person HEENT: [place] conjunctiva and NL buccal mucosa Neck: Supple, no tenderness Endocrine: No Thyromegaly. Vascular: No JVD or carotid bruit. Lymphatic: No cervical lymphadenopathy. Chest: CTA no DTP. Heart RRR, no extra sound or murmur. Abd: Soft, no tenderness, no rebound and no rigidity. Increase abd girth therefore clinically I could not exclude the possibility of intra abd mass or organomegaly. LE: No cyanosis or clubbing, no varices or edema. Neuro: A A O. Nl speech, comprehension and attention. Nl and symetrical motor and tone examination through out. []] Constitutional Vital Signs, click to edit/add: Last Vital Signs Temp 98.6 F 08/02/25 07:31 Pulse 60 08/02/25 07:57 Resp 16 08/02/25 05:00 BP 154/96 H 08/02/25 07:31 Pulse Ox 94 L 08/02/25 07:31 O2 Del Method Room Air 08/02/25 07:31 Results Labs Labs: Short CBC 08/01/25 08/02/25 Range/Units 19:10 05:23 WBC 5.1 5.7 (4.0-11.0) 10^3/uL Hgb 13.2 L 12.8 L (14.0-18.0) g/dL Hct 36.1 L 34.8 L (42.0-54.0) % Plt Count 124 L 116 L (150-450) 10^3/uL BMP 08/01/25 08/02/25 19:10 05:23 Sodium 136 134 L Potassium 3.7 3.2 L Chloride 100 100 Carbon Dioxide 31.6 27.3 BUN 11.0 12.0 Creatinine 1.07 0.91 Glucose 205 H 152 H Calcium 8.7 8.1 L Liver Function 08/02/25 Range/Units 05:23 Total Bilirubin 0.6 (0.2-1.0) mg/dL AST 19 (15-37) U/L ALT 41 (16-63) U/L Alkaline Phosphatase 61 (46-116) U/L Albumin 3.6 (3.4-5.0) g/dL Assessment and Plan Assessment and Plan (1) Chest pain: (2) HTN (hypertension): (3) Diabetes: Plan Chest pain over the last 48 hours Serial troponin are negative EKG does not show any ST depression or elevation Symmetrical radial pulses. No shortness of breath, no hypoxemia Chest x-ray negative for acute disease LFTs normal. Lipase negative Patient has multiple risk factors for CAD I suspect that he is having stable angina. Requested stress test nuclear Continue beta-jorden. Start patient on aspirin Continuation of home statin. Lipid profile showed HDL at 32 and LDL at 70 Echocardiogram to rule out cardiomyopathy or valvular disease Cardiac consultation. Defer for any diagnostic and therapeutic invention added to his cardiovascular issues to cardiology team Hypertension. Patient is on lisinopril 40 mg daily and Coreg as well as amlodipine. Continue preadmission medications. Titrate to keep systolic less than 150. Diabetes Requested A1c which came back at 6 Continue home glipizide. Start patient on sliding scale coverage Anemia, no evidence of acute blood loss. Not significant. Patient will likely require to have anemia workup to be done in the outpatient setting to be handled by PCP in collaboration with other needed outpatient providers. This may include but not limited to EGD, colonoscopy, referral to see hematology and other needed age-appropriate cancer screening. Hypokalemia Potassium supplementation Borderline hypomagnesemia Magnesium supplementation Chronic, subacute medical conditions not listed above, abnormal labs and imaging. These would need to be addressed. Could be addressed later on or in the outpatient setting by PCP collaboration with other needed outpatient providers when time and condition are appropriate.
[2025-08-02] MEDS: METFORMIN HCL 500 MG TAB.ER.24H PO ×2 (08:34→20:56)
[2025-08-02] MEDS: SPIRONOLACTONE 25 MG TABLET 50 MG PO (08:35)
[2025-08-02] MEDS: GLIPIZIDE 10 MG TABLET PO (08:35)
[2025-08-02] MEDS: MAGNESIUM OXIDE 400 MG TABLET PO (08:37)
[2025-08-02] MEDS: POTASSIUM CHLORIDE 10 MEQ ER TABLET 40 MEQ PO (08:43)
--- NOTE | 2025-08-02 10:09 | DIETREC ---
Recommend 2000 kcal CCD, Heart Healthy diet d/t dx DM, HLD, HTN, chest pain.
--- NOTE | 2025-08-02 12:33 | PC.NURSE ---
Nursing Note Cardiac Stress Test Reviewed: Medication, allergies and patient history reviewed. Stress Test: [x ] Patient tolerated stress test well. [ ] Patient unable to tolerate walking on treadmill. Switched to Lexiscan stress test. [ ] No chest pain noted per patient [x ] Chest pain that resolved prior to leaving stress lab. [ ] No dyspnea noted. [x ] Dyspnea that resolved prior to leaving stress lab. [x ] Patient left stress lab asymptomatic and hemodynamically stable. [ ] Patient taken to the Emergency Room due to non-resolving symptoms following stress test. [x ] Patient achieved target heart rate. [ ] Patient unable to achieve target heart rate. [ ] Aminophylline administered as reversal agent to Lexiscan (Regadenoson). [ ] Nitro administered. Nursing Comments:Pt stated he had a 2 second episode of chest pain and then it resolved right away while walking on the TM. Pt had no symptoms when he was taken back to his [place] room.
[2025-08-02] MEDS: LISINOPRIL 20 MG TABLET 40 MG PO (13:20)
[2025-08-02] MEDS: CARVEDILOL 6.25 MG TABLET PO ×2 (13:20→20:57)
--- NOTE | 2025-08-02 13:48 | PM.STRESS ---
Stress Test Stress Test Allergies Allergy/AdvReac Type Severity Reaction Status Date / Time No Known Drug Allergies Allergy Verified 08/01/25 19:01 Requesting physician: Homero Calero Procedure: Treadmill nuclear stress test with cardiolyte General Information: Reason for Stress Test: [Chest pain] Cardiac History and Risk Factors: [HTN, diabetes, dyslipidemia] Resting 12 - Lead Electrocardiogram: Normal sinus rhythm Normal ECG Stress Test: Protocol: [Héctor: exercised for 10 mins and 12 seconds. Resting HR 63 bpm, pean HR 148 bpm which is 87% of PMHR%. Resting BP 178/90 and maximal BP 210/104 mmHg. Pt reached stage 4 of the Héctor Protocol achieving 13.4 METs. The test was terminated due to achievement of target HR and fatigue.] Exercise Capacity: [Good] Blood Pressure Response: [Resting hypertension, appropriate response] Rhythm: [Sinus with PVCs] ST - Response: [No significant ST T wave changes] Patient Response: [No significant chest pain] Interpretation: 1. No ischemic EKG changes on treadmill exercise stress test. 2. Resting hypertension, normal BP response to exercise. 3. Appropriate HR response to exercise. 4. Valentin Treadmill Score: +10.1. Estimated 1-Year Mortality: 0.3-0.9 %. Risk Category: Low Risk. Angiography: Usually not indicated.
--- NOTE | 2025-08-02 16:54 | PM.CACN ---
History of Present Illness History of Present Illness Consult date: 08/02/25 Requesting physician: Homero Calero Consult reason: chest pain Chief complaint: CHest Pain Narrative: Steve Delgado is a 49 yo male with PMH of HTN and diabetes. He presented to the ED c/o intermittent chest pain over the last 48 hours. Duration was approximately 2-3 minutes with no radiation. No other symptoms. Denies any cardiac history. Does not see a net developer consultant. Today, he is seen and examined at the bedside. Denies chest pain, SOB, palpititations, or LE edema. Review of Systems ROS Status of ROS 10 or more systems reviewed and unremarkable except as noted in history and below [facility] Medical History (Updated 08/02/25 @ 08:11 by Homero Calero MD) High cholesterol ?E78.00 - Pure hypercholesterolemia, unspecified (ICD-10) Family History (Updated 08/01/25 @ 23:56 by Lee Ann Walters) Other Family history of cancer Family history of diabetes mellitus Family history of hypertension Family history of myocardial infarction Family history of stroke Social History (Updated 08/01/25 @ 23:56 by Lee Ann Walters) Within the past year, how often did you have a drink containing alcohol: monthly or less Within the past year, how many standard drinks containing alcohol did you have on a typical day: 1 or 2 Total score: 0 Score interpretation: A score less than 4 is consistent with normal alcohol consumption. Smoking status: Never smoker Non-prescribed substance use: cannabis (any form) Non-prescribed substance use details: edibles In a typical week, how many times do you talk on the telephone with family, friends, or neighbors: 3 or more times per week How often do you get together with friends or relatives: 3 or more times per week Little interest or pleasure in doing things: not at all Feeling down, depressed, or hopeless: not at all Feel stressed/tense/nervous/anxious/difficulty sleeping: not at all Do you think of yourself as: straight/heterosexual Gender Identity: male Meds Home Medications and Allergies Home Medications ?Medication ?Instructions ?Recorded ?Confirmed ?Type atorvastatin 40 mg tablet 40 mg PO QPM 08/01/25 08/01/25 History carvedilol 6.25 mg tablet 6.25 mg PO BID 08/01/25 08/01/25 History glipizide 10 mg tablet 10 mg PO DAILY 08/01/25 08/01/25 History lisinopril 40 mg tablet 40 mg PO QAM 08/01/25 08/01/25 History magnesium oxide 400 mg (241.3 mg 400 mg PO DAILY 08/01/25 08/01/25 History magnesium) tablet metformin 500 mg tablet,extended 500 mg PO BID 08/01/25 08/01/25 History release 24 hr spironolactone 50 mg tablet 50 mg PO QAM 08/01/25 08/01/25 History trazodone 100 mg tablet 100 mg PO QPM 08/01/25 08/01/25 History Allergies Allergy/AdvReac Type Severity Reaction Status Date / Time No Known Drug Allergies Allergy Verified 08/01/25 19:01 Exam Constitutional Vital Signs, click to edit/add: Last Vital Signs Temp 98.6 F 08/02/25 16:25 Pulse 73 08/02/25 16:25 Resp 16 08/02/25 05:00 BP 156/89 H 08/02/25 16:25 Pulse Ox 98 08/02/25 16:25 O2 Del Method Room Air 08/02/25 16:25 Cardio Common normals: no JVD, regular rate, regular rhythm, S1 normal heart sound, S2 normal heart sound and peripheral pulses 2+ throughout Rate: regular rate Rhythm: regular rhythm Heart sounds: S1 normal and S2 normal Peripheral pulses: pulses 2+ throughout Extremity Common normals: normal capillary refill General: normal exam except as noted Results Labs and Meds Lab results: Cardiac Enzymes 08/02/25 Range/Units 05:23 AST 19 (15-37) U/L Lipids 08/02/25 Range/Units 05:23 Triglycerides 197 H (<=150) mg/dL Cholesterol 141 (<=200) mg/dL HDL Cholesterol 32 L (40-60) mg/dL Cholesterol/HDL Ratio 4.4 CBC 08/01/25 08/02/25 Range/Units 19:10 05:23 WBC 5.1 5.7 (4.0-11.0) 10^3/uL RBC 4.27 L 4.16 L (4.70-6.10) 10^6/uL Hgb 13.2 L 12.8 L (14.0-18.0) g/dL Hct 36.1 L 34.8 L (42.0-54.0) % Plt Count 124 L 116 L (150-450) 10^3/uL Neut # (Auto) 3.7 3.6 (1.4-6.5) 10^3/uL Lymph # (Auto) 1.0 L 1.6 (1.2-3.8) 10^3/uL [place] # (Auto) 0.2 L 0.3 (0.3-0.8) 10^3/uL Eos # (Auto) 0.2 0.3 (0.0-0.7) 10^3/uL Baso # (Auto) 0.0 0.0 (0.0-0.1) 10^3/uL Comprehensive Metabolic Panel 08/01/25 08/02/25 Range/Units 19:10 05:23 Sodium 136 134 L (136-145) mmol/L Potassium 3.7 3.2 L (3.5-5.1) mmol/L Chloride 100 100 (98-107) mmol/L Carbon Dioxide 31.6 27.3 (21.0-32.0) mmol/L BUN 11.0 12.0 (7.0-18.0) mg/dL Creatinine 1.07 0.91 (0.70-1.30) mg/dL Glucose 205 H 152 H (74-106) mg/dL Calcium 8.7 8.1 L (8.5-10.1) mg/dL AST 19 (15-37) U/L ALT 41 (16-63) U/L Alkaline Phosphatase 61 (46-116) U/L Total Protein 6.6 (6.4-8.2) g/dL Albumin 3.6 (3.4-5.0) g/dL Assessment and Plan Assessment and Plan (1) Chest pain: (2) HTN (hypertension): (3) Diabetes: Plan #Chest pain Currently denies chest pain. Negative troponin. No ischemia on 12-lead ECG. Uncontrolled hypertension. TTE today 08/02/25: EF 55-60%, no significant wall motion abnormalities. Moderate concentric LVH. Treadmill stress test without ischemic ECG changes - myocardial perfusion imaging demonstrated small apical reversible defect, consistent with mild inducible ischemia. Findings are suggestive of stable ischemic heart disease with low ischemic burden. --Given absence of high-risk features and negative biomarkers, relatively normal TTE, recommend medical management at this time --Optimize medical therapy with beta-jorden, SEBAS/ARB, and statin. --Continue atorvastatin 40 mg daily (goal LDL <70 mg/dL - consider uptitration to 80 mg if tolerated). --Continue carvedilol 6.25 mg BID --Continue lisinopril 40 mg daily --Continue amlodipine 5 mg daily (added this visit for BP and anti-anginal benefit) --Recommend aspirin 81 mg daily for secondary prevention if no contraindication. #HTN Elevated, uncontrolled on admission --Continue carvedilol 6.25 mg BID --Continue lisinopril 40 mg daily --Continue amlodipine 5 mg daily (added this visit) --Continue spironolactone 25 mg daily #DM Hemoglobin a1c 6.1% today 6.1% On Metformin Plan overview: --Optimize medical therapy with beta-jorden, SEBAS/ARB, and statin. --Reinforce risk-factor modification - BP, lipids, glucose, and lifestyle. --Outpatient follow in Cardiology clinic for reassessment of BP response, symptom burden, and medication tolerance Case discussed with Dr. Conway. Oscar Diaz, [facility] Cardiovascular Medicine
[2025-08-02] MEDS: AMLODIPINE BESYLATE 5 MG TABLET 2.5 MG PO (18:21)
[2025-08-02] MEDS: ATORVASTATIN CALCIUM 40 MG TABLET PO (20:57)
[2025-08-02] MEDS: TRAZODONE HCL 50 MG TABLET 100 MG PO (20:57)
[2025-08-02] MEDS: INSULIN ASPART 300 UNIT/3 ML PEN SUBQ (21:03)
--- NOTE | 2025-08-02 21:43 | CA_ITS ---
Patient Name: ANASTASIA BAKER MR#: [id number] : 1975 Exam Date: 08/02/2025 Ordering Doctor: NANCY GRANADOS ECHOCARDIOGRAM REPORT PROCEDURE: CA ECHO DOPPLER COMPLETE INDICATIONS: Chest pain COMPARISON: None. DESCRIPTION: COMPLETE ECHOCARDIOGRAM Real-time transthoracic echocardiography with 2D, M-mode, spectral and color flow Doppler performed. QUALITY: Technical quality was good. LEFT VENTRICLE: Normal chamber size. Moderate concentric left ventricular hypertrophy. LV EF: Global left ventricular systolic function is normal. Visually estimated ejection fraction is 55 to 60%. No significant wall motion abnormalities. DIASTOLIC: Diastolic function is indeterminate. ATRIAL SEPTUM: Inadequately seen. LEFT ATRIUM: Moderate dilatation. RIGHT ATRIUM: Moderate dilatation. RIGHT VENTRICLE: Normal chamber size. Normal right ventricular systolic function. TRICUSPID VALVE: Normal mobility and thickness. No stenosis with trivial regurgitation. No evidence of pulmonary hypertension. RVSP 29mmHg. MITRAL VALVE: Normal mobility and thickness. No evidence of mitral valve stenosis. There is no mitral annular calcification. Trivial mitral regurgitation. AORTIC VALVE: Normal trileaflet appearance. No visible sclerosis. Normal leaflet mobility. No evidence of aortic valve stenosis. Trivial aortic regurgitation. AORTIC ROOT: Moderately dilated. Measuring 4.4cm. The ascending aorta is mildly dilated and measures 3.9cm. PULMONIC VALVE: Normal thickness and mobility. No stenosis. Trivial regurgitation. PERICARDIUM: No evidence of pericardial effusion. IVC: Collapses with inspiration. Normal size. CONCLUSION: 1. Global left ventricular systolic function is normal; visually estimated ejection fraction is 55 to 60% 2. Moderate left ventricular hypertrophy 3. Normal right ventricular size and systolic function 4. Diastolic function is indeterminate 5. Moderate biatrial dilatation 6. No significant valvular abnormalities 7. The aortic root is moderately dilated measuring 4.4 cm, the ascending aorta is mildly dilated measuring 3.9 cm Adult Echocardiography Procedure Report Left Ventricle LVEDD (3.7 - 5.6 cm): 4.84 cm LVESD (2.2 - 4.0 cm): 3.34 cm LVIVS thickness (0.6 - 1.2 cm): 1.37 cm LVPW thickness (0.5 - 1.0 cm): 1.34 cm e': 0.08 m/s E - e': 10.23 LVOT Max Gradient: 2.79 mm[Hg] LVOT Area (cm2): 0.83 m/s Peak Velocity (LVOT): 0.83 m/s Mean Velocity (LVOT): 0.62 m/s LVOT Diameter 2.28 cm Left Ventricular Ejection Fraction: 61.11 % Left Atrium LA Volume Index (2D A2C): 43.15 ml/m2 Left Atrium Systolic Dimension: 4.27 cm Mitral Valve MV E to A Ratio: 1.81 Mitral Valve A-Wave Peak Velocity: 0.44 m/s Mitral Valve E-Wave Peak Velocity: 0.80 m/s Right Ventricle RV Internal Diastolic Dimension: 4.04 cm Aorta AO Root Diam: 4.44 cm Ascending Ao Diam: 3.92 cm Aortic Valve AoV Area (Peak Edmar): 3.26 cm2, 3.26 cm2 AoV Area (VTI): 3.44 cm2, 3.44 cm2 Peak Velocity(Antegrade Flow): 1.05 m/s Peak Gradient(Antegrade Flow): 4.38 mm[Hg] Mean Velocity(Antegrade Flow): 0.71 m/s Mean Gradient(Antegrade Flow): 2.33 mm[Hg] Velocity Time Integral: 21.62 cm Tricuspid Valve Peak Velocity (Regurgitant Flow): 2.31 m/s, 2.56 m/s, 2.56 m/s Pulmonic Valve Mean Gradient: 1.16 mm[Hg], 1.41 mm[Hg] Mean Velocity: 0.48 m/s, 0.56 m/s Peak Velocity: 0.84 m/s Peak Gradient: 2.81 mm[Hg], 2.81 mm[Hg] Right Atrium Right Atrium Systolic Pressure: 81.55 ml, 81.55 ml Dictated by: Sophie Cortez M.D. on 08/02/2025 at 10:30 Approved by: Sophie Cortez M.D. on 08/02/2025 at 10:35
[2025-08-03] VITALS (8 sets, daily range): BP systolic 157–159; BP diastolic 91–98; PULSE 63–77; TEMP 36.5–36.8; O2SAT 94–95
[2025-08-03] MEDS: MAGNESIUM OXIDE 400 MG TABLET PO (08:15)
[2025-08-03] MEDS: AMLODIPINE BESYLATE 5 MG TABLET 2.5 MG PO (08:15)
[2025-08-03] MEDS: SPIRONOLACTONE 25 MG TABLET 50 MG PO (08:15)
[2025-08-03] MEDS: GLIPIZIDE 10 MG TABLET PO (08:16)
[2025-08-03] MEDS: METFORMIN HCL 500 MG TAB.ER.24H PO (08:16)
[2025-08-03] MEDS: CARVEDILOL 6.25 MG TABLET PO (08:16)
[2025-08-03] MEDS: ENOXAPARIN SODIUM 40 MG/0.4 ML SYRINGE SUBQ (08:16)
[2025-08-03] MEDS: ASPIRIN 325 MG TABLET PO (08:16)
[2025-08-03] MEDS: LISINOPRIL 20 MG TABLET 40 MG PO (08:16)
[2025-08-03] MEDS: INSULIN ASPART 300 UNIT/3 ML PEN SUBQ (08:17)
--- NOTE | 2025-08-03 08:50 | CM.NOTE ---
Rounds made with Dr. Calero, discussed with pt discharge to home and new medications. Pt verbalizes confusion on medications, CM will go back in and go over medications prior to D/C. Called pharmacy to make sure medications were reconciled on admission.
--- NOTE | 2025-08-03 09:49 | PM.DS1 ---
DS: Providers Provider Date of admission: 08/01/25 23:48 Primary care physician: Maicol Greco MD Consults: 08/02/25 Consult to Cardiology Routine Reason for consultation: chest pain Has provider been notified: No DS: Diagnosis Discharge Diagnosis (1) Chest pain: (2) HTN (hypertension): (3) Diabetes: DS: Summary Hospital Course Hospital Course: Mr. Delgado is a 49-year-old gentleman who came in with chest pain. Chest pain over the last 48 hours Serial troponin are negative EKG does not show any ST depression or elevation Symmetrical radial pulses. No shortness of breath, no hypoxemia Chest x-ray negative for acute disease LFTs normal. Lipase negative Patient has multiple risk factors for CAD I suspect that he is having stable angina. Requested stress test nuclear. This came back positive for apical ischemic changes Patient was seen by funeral pre arrangement specialist who recommended Cement Finisher did not recommend cardiac cath. Continue beta-jorden. Coreg 6.25 twice a day. (Patient was not taking it at home. ) Start patient on aspirin Continuation of home statin. Lipid profile showed HDL at 32 and LDL at 70 Nitroglycerin as needed for chest pain. Adding amlodipine for blood pressure control and antianginal. Echocardiogram to rule out cardiomyopathy or valvular disease. Echocardiogram does not show cardiomyopathy. Cement Finisher cleared the patient to go home and to follow-up in the outpatient setting. I made it very clear to patient that if he develops any recurrent chest pain he would need to come back to the emergency room. I suspect that his chest pain and angina symptoms prior to admission in the setting of detected apical ischemic changes is related to uncontrolled hypertension with a blood pressure systolically 196 Patient is to follow-up with cardiology team. Hypertensive urgency Much improved after adjustment of BP meds Hypertension. Patient is on lisinopril 40 mg daily Patient was taking carvedilol. He was started back on carvedilol 6.25 twice a day Amlodipine 5 mg daily was added on Continue preadmission medications. Titrate to keep systolic less than 150. Additional adjustment and titration of medication will need to take place in the outpatient setting over the next several weeks to achieve optimal control. Diabetes Requested A1c which came back at 6 Continue home glipizide. Start patient on sliding scale coverage Anemia, no evidence of acute blood loss. Not significant. Patient will likely require to have anemia workup to be done in the outpatient setting to be handled by PCP in collaboration with other needed outpatient providers. This may include but not limited to EGD, colonoscopy, referral to see hematology and other needed age-appropriate cancer screening. Hypokalemia, chronic for which his medical assembler started him on spironolactone and recommended him to stay on lisinopril 40 mg daily. Potassium supplementation Patient takes potassium 20 mEq he daily that is not showing up on his home medication. I instructed him to continue to take it and follow-up with his medical assembler. Borderline hypomagnesemia Magnesium supplementation Moderate dilatation of the aortic root measuring about 4.4 cm. I recommend ongoing surveillance in the outpatient setting by echocardiogram or CT. To be arranged by PCP and/or funeral pre arrangement specialist. Chronic, subacute medical conditions not listed above, abnormal labs and imaging. These would need to be addressed. Could be addressed later on or in the outpatient setting by PCP collaboration with other needed outpatient providers when time and condition are appropriate. Patient has multiple medical issues as listed above and others that are not listed. All appear to be stable. Patient is chest pain-free. Serial troponins are negative. EKGs are negative. Patient was cleared by cardiology to be discharged home. At this time, I do not have any clear or strong clinical justification to extend inpatient hospitalization. Patient however will require close and frequent monitoring as well as additional work-up, investigation and therapeutic intervention that could take place from this point on post discharge. That is to prevent relapse, decompensation, rehospitalization and other medical implications.. I instructed patient to ask her primary care doctor to obtain [facility] record entirely to address abnormalities seen on labs and imaging that I have and have not addressed during this hospitalization, follow-up on pending blood work, imaging and pathology is if available and to follow-up on needed medical care in the outpatient setting. Time Spent with Patient Time attestation: Total time spent providing and/or coordinating discharge services: Exam Narrative Exam Narrative: [pt is awake and alert. oriented to place, time and person HEENT: [place] conjunctiva and NL buccal mucosa Neck: Supple, no tenderness Endocrine: No Thyromegaly. Vascular: No JVD or carotid bruit. Lymphatic: No cervical lymphadenopathy. Chest: CTA no DTP. Heart RRR, no extra sound or murmur. Abd: Soft, no tenderness, no rebound and no rigidity. Increase abd girth therefore clinically I could not exclude the possibility of intra abd mass or organomegaly. LE: No cyanosis or clubbing, no varices or edema. Neuro: A A O. Nl speech, comprehension and attention. Nl and symetrical motor and tone examination through out. []] Constitutional Vital Signs, click to edit/add: Last Vital Signs Temp 98.2 F 08/03/25 07:39 Pulse 74 08/03/25 08:00 Resp 18 08/03/25 03:42 BP 157/98 H 08/03/25 07:39 Pulse Ox 94 L 08/03/25 07:39 O2 Del Method Room Air 08/03/25 07:39 DS: Data Data Completed and Pending Labs on day of discharge: Labs from last 24 hours 08/03/25 08/02/25 08/02/25 07:36 20:56 16:19 POC Glucose 148 H 202 H 99 08/02/25 11:28 POC Glucose 127 H Discharge Plan Discharge Disposition: Home, Self-Care Discharge Medications: New nitroglycerin 0.4 mg Tablet, Sublingual 0.4 mg sublingual Q5M PRN (Reason: Chest Pain) Qty: 30 2RF Rx Instructions: Take 1 under your tongue as needed for chest pain. May take 2nd and 3rd dose 5 to 10 minutes apart if needed for chest pain Report to the emergency room and/or 911 amlodipine 5 mg tablet 5 mg PO DAILY Qty: 30 2RF aspirin 81 mg tablet,delayed release (DR/EC) 81 mg PO DAILY Qty: 90 2RF Continued atorvastatin 40 mg tablet 40 mg PO QPM glipizide 10 mg tablet 10 mg PO DAILY magnesium oxide 400 mg (241.3 mg magnesium) tablet 400 mg PO DAILY trazodone 100 mg tablet 100 mg PO QPM metformin 500 mg tablet extended release 24 hr 500 mg PO BID lisinopril 40 mg tablet 40 mg PO QAM spironolactone 50 mg tablet 50 mg PO QAM carvedilol 6.25 mg tablet 6.25 mg PO BID Qty: 60 2RF Print Language: Luxembourgish Activity Restrictions/Additional Instructions: I may not have addressed or treated all of your medical illnesses or the abnormal blood work or imaging studies during this hospitalization. Please ask your primary care provider to obtain [facility] records entirely to follow up on all of the abnormal physical, laboratory, and imaging findings that I have not addressed. Please return back to the emergency room if you develop chest pain Please report your heart doctor if you continue to have chest discomfort. Blood pressure medications will continue to be adjusted by your primary care doctor and heart doctor to achieve optimal blood pressure control. Echocardiogram sonogram of the heart showed some widening of the aortic vessel coming out of your heart. I would recommend that you have repeat echocardiogram sonogram of the heart in 6 to 8 months to monitor this dilatation to be arranged by your primary care doctor or heart doctor. In the situation, controlling blood pressure is very important. Please return back to the emergency room or seek medical attention if your symptoms worsen or return. Check your blood sugar 3 times a day before meals. Document these numbers on a blood glucose log and bring them with you to your follow-up appointment with your primary care doctor. Communicate with your primary care doctor or allergy specialist if your blood sugar is under 100 or above 300 on 2 consecutive checks. Communicate with your primary care doctor or allergy specialist if you have any questions about your diabetes medications. Signs of a low blood sugar include sweating, racing heart, dizziness and/or weakness. Check your blood sugar if you have any of the symptoms. Discharging you from [facility] does not mean that your medical care ends here and now. You may still need additional monitoring, work up, investigation, and treatment plan to be handled from this point on by out patient providers including your primary care provider and specialists. For any medication question, please contact your retail pharmacist or your primary care provider. Thank you. Forms: Portal Instructions Follow Up Appointments: [facility] cardiology at the [facility] Aug @11:00
--- NOTE | 2025-08-03 10:00 | CM.NOTE ---
CM in to speak with pt regarding discharge instructions and new medications. Pt verbalizes understanding new medications and reason for taking medication. Pt also instructed to come back to ER if CP returns. Pt verbalizes understanding of f/u appointments. All questions answered.
--- NOTE | 2025-08-04 11:33 | CM.DCFOLLOWU ---
Person spoke with: patient How are you feeling? well How is your pain?none Did you understand your discharge instructions?yes Do you have any questions about your discharge instructions?no Were you given any prescriptions at discharge? yes Were you able to get your prescriptions filled?yes Do you understand how to take your medications as ordered? yes Do you have any questions about your follow up appointment and do you plan to keep your follow up appointment? no questions, follow ups reviewed and pt stated Dr. Greco will be out of network so he is meeting with another physician tomorrow to see if he will accept. Is there anything else that you would like to discuss? no Questions/Comments/Concerns/Other:none
== END 2025-08-03 11:16 | disposition home or self-care (01) ==
LOC: ER 22:28 → MS 23:51
PROVIDERS: Admitting Provider Internal Medicine; Emergency Provider Internal Medicine; PCP Family Medicine; Visit Provider Internal Medicine
DX: R07.9 Chest pain, unspecified (principal); E11.9 Type 2 diabetes mellitus without complications; I10 Essential (primary) hypertension; E78.5 Hyperlipidemia, unspecified; Z79.84 Long term (current) use of oral hypoglycemic drugs; Z79.899 Other long term (current) drug therapy; D64.9 Anemia, unspecified; E87.6 Hypokalemia; E83.42 Hypomagnesemia; I16.0 Hypertensive urgency; I77.819 Aortic ectasia, unspecified site
CPT/HCPCS: 36415; 71045; 78452; 80048; 80053; 80061; 82948; 83036; 83690; 83735; 83880; 84484; 85025; 85378; 93005; 93017; 93306; 93356; 96372; 99285; A9500; G0378; J1650